=== PATIENT | male | born 1955 | race Caucasian/White ===

== ENCOUNTER → 2017-11-20 | Outpatient (CLI) | payer BC ==
[~2017-11-20] MED LIST: ALLOPURINOL100 MG PO; AMLODIPINE BESY10 MG PO; AZOR 5/20 MG1 TABLET; CLOPIDOGREL75 MG PO; DOXAZOSIN MESYLA8 MG; IRON SUPPLEMENT PO; LIPITOR40 MG PO; LISINOPRIL40 MG PO; Lipitor PO; METHOTREXATE2.5 MG; METOPROLOL TART25 MG PO; MULTI-VITAMIN1 EAC4 PO; NITROSTAT0.4 MG SL; PREDNISONE PO; PREDNISONE2.5 MG PO; PREDNISONE5 MG PO; Plavix PO; TREXALL10 MG PO; ZYLOPRIM100 MG; Zestril,Prinivil PO; Zyloprim PO; [UNRECOGNIZED DRUG - CODE] PO
== END | disposition home or self-care (01) ==
LOC: CDC 14:13
DX: Z01.810 Encounter for preprocedural cardiovascular examination (principal); M20.41 Other hammer toe(s) (acquired), right foot; M05.771 Rheumatoid arthritis with rheumatoid factor of right ankle and foot without organ or systems involvement; I45.10 Unspecified right bundle-branch block; R94.31 Abnormal electrocardiogram [ECG] [EKG]
CPT/HCPCS: 93000